=== PATIENT | female | born 1965 | race Caucasian/White ===

== ENCOUNTER 2016-09-05 14:14 | Emergency (ER) | payer OTHER ==
[~2016-09-05] VITALS: Ht 157.5 cm; Wt 78.8 kg
[~2016-09-05 14:14] MED LIST: BEN50 PO; FAMO-18 PO
[2016-09-05 14:21] VITALS: Ht 157.5 cm; Wt 78.8 kg
[2016-09-05] MEDS ORDERED: IBUP-1542 PO (15:00)
[2016-09-05] MEDS ORDERED: DICL100G37 TOP (15:01)
[2016-09-05] MEDS ORDERED: PRED20TA PO (15:03)
--- NOTE | 2016-09-05 15:32 | ERD ---
ER Documentation Chief Complaint Date/Time DATE: 09/05/16 TIME: 15:29 Chief Complaint back pain rad right leg x 1 week HPI Is a 51-year-old female presents to the ER with chronic lower back pain for the last 8-9 years. Patient states that she occasionally gets flareups. Patient has had a flare for the last week. Patient is located in her lower back and radiates down her left buttock and into her left leg. Patient denies any fevers or chills. She denies recent trauma. She denies any urinary bowel incontinence. She denies any urinary symptoms. Patient denies any numbness or tingling of her leg. Pain is described as shocklike it is intermittent. Patient has not tried anything for the pain. Patient has gone to see an radiological health specialist, however she was afraid of getting any sort of treatment. ROS 12 point review of systems was done, all negative except per HPI. Medications Home Meds Active Scripts Prednisone* (Prednisone*) 20 Mg Tab, 40 MG PO DAILY for 4 Days, TAB Prov:GIAN GRIFFIN 09/05/16 Diclofenac Sodium* (Voltaren* Gel) 1% -100 Gm Gel, 2 GM TOP QID, #1 TUB Prov:GIAN GRIFFIN C 09/05/16 Ibuprofen* (Motrin*) 600 Mg Tab, 600 MG PO Q6, #30 TAB Prov:GIAN GRIFFIN 09/05/16 Famotidine* (Pepcid*) 20 Mg Tablet, 20 MG PO BID for 7 Days, TAB Prov:ROZ CALVERT MD 11/11/15 Diphenhydramine Hcl* (Benadryl*) 50 Mg Cap, 50 MG PO Q6 Y for ANXIETY, #30 CAP Prov:ROZ CALVERT MD 11/11/15 Allergies Allergies: Coded Allergies: No Known Allergy (Unverified , 01/20/15) PMhx/Soc History of Surgery: Yes (lithotripsy) Anesthesia Reaction: No Hx Neurological Disorder: No Hx Respiratory Disorders: No Hx Cardiac Disorders: Yes (HTN, DM) Hx Psychiatric Problems: No Hx Miscellaneous Medical Probl: No Hx Alcohol Use: No Hx Substance Use: No Hx Tobacco Use: Yes (few cigarettes/week) Physical Exam Vitals Vital Signs Date Time Temp Pulse Resp B/P Pulse Ox O2 Delivery O2 Flow Rate FiO2 09/05/16 14:21 98.1 60 18 127/60 99 Physical Exam GENERAL: The patient is well developed and appropriate for usual state of health , in no apparent distress. NECK: C-spine is soft and supple. There is no cervical lymphadenopathy. CHEST: Clear to auscultation bilaterally. There are no rales, wheezes or rhonchi. HEART: Regular rate and rhythm. No murmurs, clicks, rubs or gallops. ABDOMEN: Soft, nontender and nondistended. Good bowel sounds. No rebound or guarding. No gross peritonitis. No gross organomegaly or masses. No Olguin sign or McBurney point tenderness. No pulsatile abdominal mass. BACK: No midline or flank tenderness. TTP along the left buttock. negative straight leg test. n/v intact NEURO: Alert and oriented. Procedures/MDM Differential Diagnosis includes but is not limited to back strain, vertebral fracture, epidural abscess, cauda equina, herniated disc, AAA rupture, kidney stones, UTI, pyelonephritis. This is likely sciatica. Patient has had chronic back pain for the last few years. At this time I do not believe the patient needs an x-ray as there is no history of trauma. Patient is neurovascularly intact and has full range of motion of bilateral extremities. Patient will be sent home with a short course of steroids, ibuprofen, tramadol and Voltaren. Patient urgently to follow-up with her primary care doctor and see an radiological health specialist once again. My medical decision making was shared with the patient she understands and agrees with plan. Departure Diagnosis: Primary Impression: Chronic lower back pain Additional Impression: Sciatica Condition: Stable Patient Instructions: Back Pain W/ Sciatica Additional Instructions: Llame al doctor MAANA y mojgan osito GRECIA PARA DENTRO DE 1-2 CALDERON.Dgale a la secretaria que nosotros le instruimos hacer esta grecia.Avise o llame si duckworth condicin se empeora antes de la grecia. Regresa aqui si peor o no mejor. PREGUNTALE A TU DOCTOR DE [place] QUE TE DE [facility] [place]. GIAN GRIFFIN Sep 05, 2016 15:32
== END 2016-09-05 15:00 | disposition home or self-care (01) ==
LOC: E/R 14:14
DX: M54.42 Lumbago with sciatica, left side (principal); I10 Essential (primary) hypertension; E11.9 Type 2 diabetes mellitus without complications; F17.210 Nicotine dependence, cigarettes, uncomplicated
CPT/HCPCS: 99284

== ENCOUNTER 2018-01-05 01:21 | Emergency (ER) | END 2018-01-05 07:29 | disposition home or self-care (01) ==